=== PATIENT | male | born 1955 | race African-American/Black ===

== ENCOUNTER 2019-02-04 17:11 | Inpatient (IN) | payer BC ==
[2019-02-04 18:18] LABS: Hematocrit 37 % (36-46); Hemoglobin 11.9 g/dL (14.0-18.0); Mean Corpuscular HGB Conc 33 g/dL (31-36); Mean Corpuscular Hemoglobin 29 pg (27-31); Mean Corpuscular Volume 90 fL (80-94); Mean Platelet Volume 7.3 fL (7.4-10.4); Platelet Count 615 10^3/uL (150-450); Red Blood Count 4.07 10^6 /uL (4.18-5.48); Red Cell Distribution Width 14 % (10.5-15); White Blood Count 20.4 10^3/uL (3.5-10.8)
[2019-02-04 18:35] LABS: ALT 30 U/L (7-52); AST 48 U/L (13-39); Albumin 3.8 g/dL (3.2-5.2); Albumin/Globulin Ratio 0.7 (1-3); Alkaline Phosphatase 121 U/L (34-104); Anion Gap 8 mmol/L (2-11); BUN/Creatinine Ratio 10.7 (8-20); Blood Urea Nitrogen 13 mg/dL (6-24); C Reactive Protein 180.94 mg/L (<8.01); CO2 Carbon Dioxide 25 mmol/L (22-32); Calcium 9.7 mg/dL (8.6-10.3); Chloride 98 mmol/L (101-111); EGFR African American 72.4 (>60); EGFR Non-African American 59.8 (>60); Globulin 5.4 g/dL (2-4); Glucose 109 mg/dL (70-100); Potassium 4.9 mmol/L (3.5-5.0); Sodium 131 mmol/L (135-145); Total Protein 9.2 g/dL (6.4-8.9)
[2019-02-04] MEDS ORDERED: NS 0.9% 1000 ML** 1,000 ML IV ONE (18:47)
[2019-02-04 19:03] LABS: ABS Basophils 0.1 10^3/ul (0-0.2); ABS Eosinophils 0.1 10^3/ul (0-0.6); ABS Lymphocytes 1.9 10^3/ul (1.0-4.8); ABS Monocytes 2.3 10^3/ul (0-0.8); ABS Neutrophils 16.1 10^3/ul (1.5-7.7); ABS Nucleated RBC 0 10^3/ul; Eosinophil % 0.6 %; Lymphocyte % 9.3 %; Nucleated Red Blood Cells % 0
--- NOTE | 2019-02-04 19:03 | ED ---
Neck Pain - HPI Summary HPI Summary: Patient complains of pain and swelling to left side neck starting Friday which is pending and progressively worse. Patient was seen at urgent care on Friday , and took 3 days of twice a day doses. Patient then stopped before. Antibiotics were making the neck mass worse. Patient eating and drinking normally, denies SOB, dysphagia, trauma, fever, FISHER, neck stiffness, cough, sore throat, CP, SOB, N/V/D, abdominal pain, change in urine, change in BM. Medical history is hep C. - History of Current Complaint Chief Complaint: EDNeckComplaint Stated Complaint: NECK SWELLING PER PT Time Seen by Provider: 02/04/19 17:39 Hx Obtained From: Patient Onset/Duration Of Injury/Symptoms: Days Mechanism Of Injury: No Known Trauma Timing: Lasting Days Onset/Duration: Gradual Onset Severity Initially: Mild Severity Currently: Severe Pain Intensity: 9 Pain Scale Used: 0-10 Numeric Location: Discrete At: Character: Aching Aggravating Factors: Movement Alleviating Factors: Nothing Associated Signs & Symptoms: Positive: Swelling - Allergies/Home Medications Allergies/Adverse Reactions: Allergies Allergy/AdvReac Type Severity Reaction Status Date / Time FRESH PINEAPPLE Allergy Swelling Uncoded 07/01/17 13:41 Of Face,Lips,& Throat Home Medications: Home Medications Amoxicillin/Clavulanate TAB* [Augmentin TAB 875*] 1 tab PO BID 02/04/19 [ History Confirmed 02/04/19] Aspirin 81 mg CHEW TAB* [Aspirin Low Dose TAB*] 81 mg PO DAILY 02/04/19 [ History Confirmed 02/04/19] PMH/Surg Hx/FS Hx/Imm Hx Endocrine/Hematology History: Denies: Hx Diabetes Cardiovascular History: Denies: Hx Congestive Heart Failure, Hx Hypertension History: Denies: Hx Renal Disease Sensory History: Reports: Hx Contacts or Glasses - READING Denies: Hx Hearing Aid Opthamlomology History: Reports: Hx Contacts or Glasses - READING Neurological History: Denies: Hx Dementia Psychiatric History: Reports: Hx Substance Abuse - ETOH - Surgical History Surgery Procedure, Year, and Place: right eye surgery - [facility]. neck surgery -[facility] Hx Anesthesia Reactions: No Infectious Disease History: No Infectious Disease History: Denies: Traveled Outside the [place] in Last 30 Days - Family History Known Family History: Positive: Hypertension - Social History Alcohol Use: Daily Alcohol Amount: APPROX 6 BEERS DAILY Substance Use Type: Reports: None Hx Tobacco Use: Yes Smoking Status (MU): Light Every Day Tobacco Smoker Amount Used/How Often: 1 PPD SINCE AGE 15-16 Review of Systems Constitutional: Negative Eyes: Negative ENT: Negative Cardiovascular: Negative Respiratory: Negative Gastrointestinal: Negative Genitourinary: Negative Musculoskeletal: Other Skin: Negative Neurological: Negative Psychological: Normal All Other Systems Reviewed And Are Negative: Yes Physical Exam - Summary Physical Exam Summary: Large mass along left side neck inferior to left ear. No evidence of mastoiditis. Hearing intact. Normal range of motion of neck with pain. Some tenderness to palpation of neck mass. No apical abscess, purulent drainage. Erythema difficult to determine given patient skin color. Triage Information Reviewed: Yes Vital Signs On Initial Exam: Initial Vitals Temp Pulse Resp BP Pulse Ox 99.2 F 95 16 122/91 99 02/04/19 17:26 02/04/19 17:26 02/04/19 17:26 02/04/19 17:26 02/04/19 17:26 Vital Signs Reviewed: Yes Appearance: Positive: Well-Appearing Skin: Positive: Warm Head/Face: Positive: Normal Head/Face Inspection Eyes: Positive: Normal ENT: Positive: Normal ENT inspection Neck: Positive: Supple Respiratory/Lung Sounds: Positive: Clear to Auscultation Cardiovascular: Positive: Normal Abdomen Description: Positive: Nontender Musculoskeletal: Positive: Normal Neurological: Positive: Normal Psychiatric: Positive: Normal AVPU Assessment: Alert - Duncan Coma Scale Best Eye Response: 4 - Spontaneous Best Motor Response: 6 - Obeys Commands Best Verbal Response: 5 - Oriented Coma Scale Total: 15 Diagnostics - Vital Signs Vital Signs Temp Pulse Resp BP Pulse Ox 02/04/19 18:00 90 99 02/04/19 17:43 85 137/90 97 02/04/19 17:42 82 97 02/04/19 17:26 99.2 F 95 16 122/91 99 - Laboratory Lab Results: Lab Results 02/04/19 02/04/19 02/04/19 Range/Units 18:05 18:05 18:05 WBC 20.4 H (3.5-10.8) 10^3/uL RBC 4.07 L (4.18-5.48) 10^6 /uL Hgb 11.9 L (14.0-18.0) g/dL Hct 37 (36-46) % MCV 90 (80-94) fL MCH 29 (27-31) pg MCHC 33 (31-36) g/dL RDW 14 (10.5-15) % Plt Count 615 H (150-450) 10^3/uL MPV 7.3 L (7.4-10.4) fL Neut % (Auto) Pending Lymph % (Auto) Pending [place] % (Auto) Pending Eos % (Auto) Pending Baso % (Auto) Pending Absolute Neuts (auto) Pending Absolute Lymphs (auto) Pending Absolute Monos (auto) Pending Absolute Eos (auto) Pending Absolute Basos (auto) Pending Absolute Nucleated RBC Pending Nucleated RBC % Pending Sodium 131 L (135-145) mmol/L Potassium 4.9 (3.5-5.0) mmol/L Chloride 98 L (101-111) mmol/L Carbon Dioxide 25 (22-32) mmol/L Anion Gap 8 (2-11) mmol/L BUN 13 (6-24) mg/dL Creatinine 1.22 H (0.67-1.17) mg/dL Est GFR ( Amer) 72.4 (>60) Est GFR (Non-Af Amer) 59.8 (>60) BUN/Creatinine Ratio 10.7 (8-20) Glucose 109 H (70-100) mg/dL Lactic Acid 1.2 (0.5-2.0) mmol/L Calcium 9.7 (8.6-10.3) mg/dL Total Bilirubin 0.50 (0.2-1.0) mg/dL AST 48 H (13-39) U/L ALT 30 (7-52) U/L Alkaline Phosphatase 121 H (34-104) U/L C-Reactive Protein 180.94 H (<8.01) mg/L Total Protein 9.2 H (6.4-8.9) g/dL Albumin 3.8 (3.2-5.2) g/dL Globulin 5.4 H (2-4) g/dL Albumin/Globulin Ratio 0.7 L (1-3) Result Diagrams: 02/04/19 18:05 02/04/19 18:05 Lab Statement: Any lab studies that have been ordered have been reviewed, and results considered in the medical decision making process. Neck Course/Dx - Course Course Of Treatment: Patient complains of pain and swelling to left side neck starting Friday which is pending and progressively worse. Patient was seen at urgent care on Friday, and took 3 days of twice a day doses. Patient then stopped before. Antibiotics were making the neck mass worse. Patient eating and drinking normally, denies SOB, dysphagia, trauma, fever, FISHER, neck stiffness , cough, sore throat, CP, SOB, N/V/D, abdominal pain, change in urine, change in BM. Medical history is hep C. Physical exam:Large mass along left side neck inferior to left ear. No evidence of mastoiditis. Hearing intact. Normal range of motion of neck with pain. Some tenderness to palpation of neck mass. No apical abscess, purulent drainage. Erythema difficult to determine given patient skin color. Vital signs within normal limits. WBC 20.4. Lactic normal. CRP 181. Creatinine 1.22. Labs otherwise unremarkable. Left posterior cervicalabscess versus mass with associated adjacent mass effect compressing and including left internal jugular vein. SOB finding of mild emphysema. Mass was also evaluated by attending Dr. Montoya who believes mass to be abscess. Discussed patient and CT results with ENT Dr. Lopez who recommended patient be admitted for IV antibiotics and he will consult tomorrow. Patient admitted to hospitalist Dr. Marquez. Patient started on vancomycin and Zosyn here in the ED. - Diagnoses Provider Diagnoses: Neck abscess Discharge - Sign-Out/Discharge Documenting (check all that apply): Patient Departure Patient Received Moderate/Deep Sedation with Procedure: No - Discharge Plan Condition: Stable Disposition: HOME Referrals: No Primary Care Phys,NOPCP [Primary Care Provider] - - Billing Disposition and Condition Condition: STABLE Disposition: Home
[2019-02-04] MEDS ORDERED: Iohexol 300* (CONTRAST) 10 ML SDV IV ONE (19:14)
[2019-02-04] MEDS ORDERED: Morphine 10 MG/ML VIAL (1 ml) IV ONE (21:30)
[2019-02-04] MEDS ORDERED: Piperacillin/Tazobac ADVAN(*) 3.375 GM in NS 0.9% 100 ML* 100 ML IVPB ONE (21:30)
[2019-02-04] MEDS ORDERED: Vancomycin(*) 1,000 MG in NS 0.9% 250 ML* 250 ML IVPB ONE (21:30)
[2019-02-05] MEDS ORDERED: Senna TAB PO PRN (00:16)
[2019-02-05] MEDS ORDERED: Docusate CAP* 100 MG PO PRN (00:16)
[2019-02-05] MEDS ORDERED: Ondansetron INJ* 2 MG/ML VIAL IV PRN (00:16)
[2019-02-05] MEDS ORDERED: Al Hydrox/Mg Hydrox/Simet LIQ* 30 ML UDC PO PRN (00:16)
[2019-02-05] MEDS ORDERED: Gabapentin CAP(*) 100 MG PO PRN (00:23)
[2019-02-05] MEDS ORDERED: Nicotine Inhaler* 10 MG AMP INH PRN (00:23)
[2019-02-05 00:35] LABS: Alcohol < 10 mg/dL (<10)
[2019-02-05] MEDS ORDERED: LORazepam INJ* 2 MG/ML 1 ML VIAL IV PUSH SCH (01:00)
[2019-02-05] MEDS ORDERED: Vancomycin(*) 0 MG in NS 0.9% 250 ML* 250 ML IVPB SCH (01:00)
[2019-02-05] MEDS ORDERED: Vancomycin per Pharmacy* NOTE FOLLOW UP SCH (01:00)
[2019-02-05] MEDS ORDERED: Mouth Piece, Nicotine* 1 EACH CARTRIDGE INH ONE (02:00)
[2019-02-05] MEDS: Lactated Ringers 1000 ML Bag* 1,000 ML IV SCH ×2 (02:44→17:55)
[2019-02-05] MEDS: Morphine INJ* 2 MG/ML 1 ML SYRINGE (TWO MG - NEW SYRINGE VERSION) IV PRN ×4 (02:44→19:19)
[2019-02-05] MEDS: Nicotine PATCH 7 MG/24 HR* PATCH TRANSDERM SCH ×2 (02:47→13:53)
--- NOTE | 2019-02-05 03:24 | HP ---
HISTORY AND PHYSICAL: DATE OF ADMISSION: 02/05/19 TIME OF EVALUATION: 0000. CHIEF COMPLAINT: Left-sided neck mass. HISTORY OF PRESENT ILLNESS: This is a 63-year-old male with past medical history of tobacco and alcohol use, who presents to the emergency room with worsening left- sided neck mass. The patient states he first noticed the mass on Friday. Initially it was not painful, just fullness. The following day, on Friday, he left home, he left to work early, went to [facility] and they prescribed him Augmentin. He continued to have pain and swelling despite taking a total of 6 doses of Augmentin and came here to the emergency room for further evaluation. The patient denies any fevers, no chills. No nausea, vomiting, or abdominal pain. No shortness of breath. No chest pain. He states he does not have any difficulty swallowing. No lightheadedness, no dizziness. He states he has had some sinus congestion for the past week. He also has poor dentition where he is told he needs to have 2 upper teeth pulled on each side of his mouth. Otherwise, review of systems is negative. In the emergency room, the patient had labs and imaging when he was found to have concerning findings for a neck abscess. Dr. Lopez was contacted, recommended admission for antibiotics. PAST MEDICAL HISTORY: 1. History of tobacco use. 2. History of alcohol use. MEDICATION: Aspirin 81 mg p.o. daily. ALLERGIES: Pineapple. FAMILY HISTORY: Reviewed and noncontributory. SOCIAL HISTORY: The patient lives with his son, his daughter Marilyn. He works as a television camera operator. He also lives with his partner. His daughter Marilyn is his healthcare proxy. He states he has significantly cut down over the past 50 years of smoking, now only 3 to 4 cigarettes per day. He does drink a 6-pack of beer each night. No illicit drug use. REVIEW OF SYSTEMS: A 14-point review of systems as mentioned in the HPI, otherwise negative. PHYSICAL EXAMINATION GENERAL: In no acute distress, resting comfortably. Daughter is at bedside. VITAL SIGNS: Temp 99.2, pulse rate 83, respiratory rate 18, oxygen saturation is 98% on room air, and blood pressure 138/90. HEENT: Head: Normocephalic. Pupils equal and reactive. Oropharynx: Mucous membranes moist. No erythema in the posterior oropharynx. No shift. No uvular deviation. NECK: Supple. He has significant fullness and firmness on the left side of his neck surrounding his left-sided sternocleidomastoid. No nuchal rigidity. RESPIRATORY: Clear to auscultation. No wheezes, rhonchi, or rales. CARDIAC: Regular rate and rhythm. Soft systolic murmur heard throughout. ABDOMEN: Soft, nontender, nondistended. EXTREMITIES: No clubbing, cyanosis, or edema. +1 DPs. NEUROLOGIC: Alert and oriented x3. No gross focal neurologic deficits. DIAGNOSTIC STUDIES/LAB DATA: White count is 20.4, hemoglobin 11.9, hematocrit 37, platelets 615. Sodium 131, potassium 4.9, chloride 98, bicarb 25, BUN 13, creatinine 1.22, glucose 109. AST is 48, ALT is 30, and CRP is 180. Radiographic Data: Neck CT shows left posterior cervical space abscess versus mass with associated adjacent mass effect on pressing and including the left internal jugular vein, mild emphysema. ASSESSMENT: This is a 63-year-old male with a past medical history of tobacco and alcohol use, who presents to the emergency room with worsening left-sided neck pain despite oral antibiotics. 1. Neck mass. Assessment: Most consistent with likely neck abscess in the setting of poor dentition and sinus congestion. The patient was initially started on vancomycin and Zosyn. We will continue on vancomycin and switch him over to ceftriaxone and Flagyl. Recommended followup with ENT in the morning. We will keep him n.p.o., on IV fluids for now, pain control and bowel regimen. 2. Alcohol use. The patient with significant alcohol history. We will check alcohol and drug levels and place him on the [place] protocol. 3. Tobacco use. Place him on nicotine patch and inhaler. 4. FEN: NPO, IV fluids. 5. DVT prophylaxis: The patient scores moderate risk. Placed on heparin subcu t.i.d. 6. Code status: Full code. PATIENT TIME: Greater than 40 minutes was spent doing the history and physical , more than half the time spent in direct patient contact. [id number]/[facility] #: [id number] MTDD
[2019-02-05] MEDS: cefTRIAXone(*) 1 GM in NS 0.9% 50 ML* 50 ML IVPB SCH (05:19)
[2019-02-05] MEDS: oxyCODONE/Acetamin 5/325 MG* TAB PO PRN ×2 (05:29→13:52)
[2019-02-05] MEDS: metroNIDAZOLE IV 500 MG/100ML* 500 MG/100 ML BAG IVPB SCH ×3 (06:52→21:22)
[2019-02-05] MEDS: Vancomycin(*) 750 MG in NS 0.9% 250 ML* 250 ML IVPB SCH ×2 (11:44→22:39)
[2019-02-05] MEDS: Heparin VIAL(*) 5000 UNITS/ML VIAL (FIVE THOUSAND) SUBCUT SCH ×2 (13:43→20:52)
--- NOTE | 2019-02-05 13:43 | PN ---
Subjective Date of Service: 02/05/19 Interval History: Mr. Temple is feeling a little better today. He reports pain has decreased from 9/10 to 8/10 and that is acceptable for him. He finds that slight pressure to the mass decreases the pain level while moving in bed. He is hungry. Denies SOB, CP, N/V. No concerns from nursing. Family History: Unchanged from Admission Social History: Unchanged from Admission Past Medical History: Unchanged from Admission Objective Active Medications: Acetaminophen (Tylenol Tab*) 650 mg PO Q4H PRN FEVER/PAIN Al Hydrox/Mg Hydrox/Simethicone (Maalox Plus*) 30 ml PO Q6H PRN INDIGESTION Docusate Sodium (Colace Cap*) 100 mg PO BID PRN CONSTIPATION Folic Acid (Folvite Tab*) 1 mg PO DAILY [facility] Gabapentin (Neurontin Cap(*)) 200 mg PO BEDTIME PRN AGITATION Heparin Sodium (Porcine) (Heparin Vial(*)) 5,000 units SUBCUT Q8HR [facility] Lactated Ringer's (Lactated Ringers 1000 Ml Bag*) 1,000 mls @ 125 mls/hr IV PER RATE [facility] Metronidazole/Sodium Chloride (Flagyl 500 Mg Ivpb*) 500 mg in 100 mls @ 100 mls /hr IVPB Q8H [facility] Ceftriaxone Sodium 1 gm/ (Sodium Chloride) 50 mls @ 200 mls/hr IVPB Q24H [facility] Vancomycin HCl 750 mg/ Sodium (Chloride) 250 mls @ 166.667 mls/hr IVPB Q12H [facility] Lorazepam (Ativan Inj*) 0 - 3 mg IV PUSH .PER [facility] PROTOCOL [facility]; Protocol Morphine Sulfate (Morphine Inj (Syringe))*) 2 mg IV Q4H PRN PAIN - MILD Multivitamins/Minerals (Theragran/Minerals Tab*) 1 tab PO DAILY [facility] Nicotine (Nicotine Inhaler*) 10 mg INH Q2H PRN CRAVING Nicotine (Nicotine Patch 7 Mg/24 Hr*) 1 patch TRANSDERM DAILY [facility] Ondansetron HCl (Zofran Inj*) 4 mg IV Q4H PRN NAUSEA/VOMITING Oxycodone/Acetaminophen (Percocet 5/325 Tab*) 1 tab PO Q4H PRN Pain Senna (Senokot Tab*) 1 tab PO BID PRN CONSTIPATION Thiamine HCl (Vitamin B-1 Tab*) 100 mg PO DAILY [facility] Vital Signs - 8 hr 02/05/19 02/05/19 02/05/19 07:27 07:43 08:00 Temperature 97.4 F Pulse Rate 80 Respiratory 18 16 18 Rate Blood Pressure 133/67 (mmHg) O2 Sat by Pulse 100 Oximetry 02/05/19 02/05/19 02/05/19 08:24 09:15 09:28 Temperature 98.6 F Pulse Rate 78 Respiratory 16 17 18 Rate Blood Pressure 105/78 (mmHg) O2 Sat by Pulse 99 Oximetry Oxygen Devices in Use Now: None Appearance: Middle-aged male sitting in bed in NAD Eyes: No Scleral Icterus Ears/Nose/Mouth/Throat: Mucous Membranes Moist Neck: NL Appearance and Movements; NL JVP, Trachea Midline, - - Hard mass to left neck Respiratory: Symmetrical Chest Expansion and Respiratory Effort, Clear to Auscultation Cardiovascular: NL Sounds; No Murmurs; No JVD, RRR Abdominal: NL Sounds; No Tenderness; No Distention Extremities: No Edema Neurological: Alert and Oriented x 3 Lines/Tubes/Other Access: Clean, Dry and Intact Peripheral IV Result Diagrams: 02/04/19 18:05 02/04/19 18:05 Assess/Plan/Problems-Billing Assessment: Mr. Temple is a 63 yo M with PMH of alcohol abuse who presented to the ED with c/o a left-sided neck mass, presumably an abscess, who failed outpatient antibiotics and was admitted for IV antibiotics. - Patient Problems (1) Neck abscess Code(s): L02.11 - CUTANEOUS ABSCESS OF NECK Comment: - CT shows necrotic lesion vs fluid collection in the left posterior cervical space measuring 3.3 x 2.2 x 4.7cm with stranding in the carotids and compressive occlusion of the left internal jugular vein - Likely secondary to poor dentition; failed outpatient therapy with Augmentin - Appreciate ENT consult; currently NPO for possible drainage later today - Continue vanco, ceftriaxone, Flagyl (2) Sepsis Comment: - Met criteria on admission with tachycardia and leukocytosis; source is left neck abscess - Blood cultures pending - Plan as above (3) MILAN (acute kidney injury) Code(s): N17.9 - ACUTE KIDNEY FAILURE, UNSPECIFIED Comment: - Creatinine 1.22 on admission - Continue IVF and will check BMP in the AM (4) Alcohol dependence Code(s): F10.20 - ALCOHOL DEPENDENCE, UNCOMPLICATED Comment: - Reportedly drinks 6 beers a night - Social work consult - Continue WAM and lorazepam per protocol (5) DVT prophylaxis Comment: - Heparin SQ (6) Full code status Code(s): Z78.9 - OTHER SPECIFIED HEALTH STATUS Comment: Status and Disposition: Inpatient for IV antibiotics and likely drainage of abscess. Anticipate d/c home when medically stable, timeframe unknown. Attending: Kalyn Flores
[2019-02-05] MEDS: Multivitamins/Minerals TAB PO SCH (13:52)
[2019-02-05] MEDS: Thiamine TAB* 100 MG TAB PO SCH (13:53)
[2019-02-05] MEDS: Folic Acid TAB* 1 MG PO SCH (13:53)
[2019-02-05] MEDS: Acetaminophen TAB* 325 MG PO PRN (19:19)
[2019-02-05] MEDS ORDERED: Nicotine Patch Removal NOTE PATCH OFF SCH (21:00)
[2019-02-05] MEDS: Nicotine Patch Removal NOTE FOLLOW UP SCH (21:22)
[2019-02-06] MEDS: Acetaminophen TAB* 325 MG PO PRN ×2 (00:10→06:08)
[2019-02-06] MEDS: Lactated Ringers 1000 ML Bag* 1,000 ML IV SCH (02:06)
[2019-02-06] MEDS: Heparin VIAL(*) 5000 UNITS/ML VIAL (FIVE THOUSAND) SUBCUT SCH ×3 (04:59→21:59)
[2019-02-06] MEDS: cefTRIAXone(*) 1 GM in NS 0.9% 50 ML* 50 ML IVPB SCH (05:00)
[2019-02-06] MEDS: metroNIDAZOLE IV 500 MG/100ML* 500 MG/100 ML BAG IVPB SCH ×3 (05:24→22:18)
[2019-02-06] MEDS: Morphine INJ* 2 MG/ML 1 ML SYRINGE (TWO MG - NEW SYRINGE VERSION) IV PRN (06:09)
[2019-02-06 06:15] LABS: Hematocrit 29 % (36-46); Hemoglobin 9.7 g/dL (14.0-18.0); Mean Corpuscular HGB Conc 33 g/dL (31-36); Mean Corpuscular Hemoglobin 30 pg (27-31); Mean Corpuscular Volume 89 fL (80-94); Mean Platelet Volume 7.1 fL (7.4-10.4); Platelet Count 462 10^3/uL (150-450); Red Blood Count 3.24 10^6 /uL (4.18-5.48); Red Cell Distribution Width 13 % (10.5-15); White Blood Count 11.4 10^3/uL (3.5-10.8)
[2019-02-06 06:21] LABS: ABS Basophils 0.1 10^3/ul (0-0.2); ABS Eosinophils 0.2 10^3/ul (0-0.6); ABS Lymphocytes 1.2 10^3/ul (1.0-4.8); ABS Monocytes 1.7 10^3/ul (0-0.8); ABS Neutrophils 8.1 10^3/ul (1.5-7.7); ABS Nucleated RBC 0 10^3/ul; Lymphocyte % 10.7 %; Nucleated Red Blood Cells % 0
[2019-02-06 06:28] LABS: BUN/Creatinine Ratio 10.6 (8-20); Calcium 8.6 mg/dL (8.6-10.3); EGFR African American 109.8 (>60); EGFR Non-African American 90.7 (>60); Magnesium 2.1 mg/dL (1.9-2.7); Potassium 4.2 mmol/L (3.5-5.0)
[2019-02-06] MEDS: Nicotine PATCH 7 MG/24 HR* PATCH TRANSDERM SCH (08:05)
[2019-02-06] MEDS: Multivitamins/Minerals TAB PO SCH (08:05)
[2019-02-06] MEDS: Folic Acid TAB* 1 MG PO SCH (08:05)
[2019-02-06] MEDS: Thiamine TAB* 100 MG TAB PO SCH (08:05)
[2019-02-06] MEDS ORDERED: Lidocain 1% EPI 1:100,000 * 30 ML MDV ONE (09:37)
--- NOTE | 2019-02-06 09:46 | PN ---
Subjective Date of Service: 02/06/19 Interval History: Mr. Temple reports that he is having pain in his neck but he is generally doing well. He denies any difficulty swallowing or breathing. He further denies chest pain or SOB. Family History: Unchanged from Admission Social History: Unchanged from Admission Past Medical History: Unchanged from Admission Objective Active Medications: Acetaminophen (Tylenol Tab*) 650 mg PO Q4H PRN Al Hydrox/Mg Hydrox/Simethicone (Maalox Plus*) 30 ml PO Q6H PRN Docusate Sodium (Colace Cap*) 100 mg PO BID PRN Folic Acid (Folvite Tab*) 1 mg PO DAILY [facility] Gabapentin (Neurontin Cap(*)) 200 mg PO BEDTIME PRN Heparin Sodium (Porcine) (Heparin Vial(*)) 5,000 units SUBCUT Q8HR [facility] Lactated Ringer's (Lactated Ringers 1000 Ml Bag*) 1,000 mls @ 125 mls/hr IV PER RATE [facility] Metronidazole/Sodium Chloride (Flagyl 500 Mg Ivpb*) 500 mg in 100 mls @ 100 mls /hr IVPB Q8H [facility] Ceftriaxone Sodium 1 gm/ (Sodium Chloride) 50 mls @ 200 mls/hr IVPB Q24H [facility] Vancomycin HCl 750 mg/ Sodium (Chloride) 250 mls @ 166.667 mls/hr IVPB Q12H [facility] Lorazepam (Ativan Inj*) 0 - 3 mg IV PUSH .PER [facility] PROTOCOL [facility]; Protocol Morphine Sulfate (Morphine Inj (Syringe))*) 2 mg IV Q4H PRN Multivitamins/Minerals (Theragran/Minerals Tab*) 1 tab PO DAILY [facility] Nicotine (Nicotine Inhaler*) 10 mg INH Q2H PRN Nicotine (Nicotine Patch 7 Mg/24 Hr*) 1 patch TRANSDERM DAILY [facility] Ondansetron HCl (Zofran Inj*) 4 mg IV Q4H PRN Oxycodone/Acetaminophen (Percocet 5/325 Tab*) 1 tab PO Q4H PRN Pharmacy Consult (Vancomycin Per Pharmacy*) 1 note FOLLOW UP .VANC PER PHARMACY [facility] Pharmacy Profile Note (Nicotine Patch Removal Note*) 1 note FOLLOW UP 2100 [facility] Pharmacy Profile Note (Vancomycin Trough Check) 1 note FOLLOW UP 1030 [facility] Senna (Senokot Tab*) 1 tab PO BID PRN Thiamine HCl (Vitamin B-1 Tab*) 100 mg PO DAILY [facility] Vital Signs: Temp Pulse Resp BP Pulse Ox 97.4 F 78 20 111/68 98 02/06/19 08:07 02/06/19 08:07 02/06/19 08:07 02/06/19 08:07 02/06/19 08:07 Oxygen Devices in Use Now: None Appearance: Male sitting up in bed in NAD Eyes: No Scleral Icterus Ears/Nose/Mouth/Throat: Mucous Membranes Moist Neck: Trachea Midline Respiratory: Symmetrical Chest Expansion and Respiratory Effort, Clear to Auscultation Cardiovascular: NL Sounds; No Murmurs; No JVD, No Edema Abdominal: NL Sounds; No Tenderness; No Distention Extremities: No Edema Skin: - - Dressing to L posterior neck CDI Neurological: Alert and Oriented x 3, NL Muscle Strength and Tone Nutrition: Taking PO's Result Diagrams: 02/06/19 05:54 02/06/19 05:54 Additional Lab and Data: . Microbiology and Other Data: . Assess/Plan/Problems-Billing Assessment: Mr. Temple is a 63 yo M with PMH of alcohol abuse who presented to the ED with c/o a left-sided neck mass, presumably an abscess, who failed outpatient antibiotics and was admitted for IV antibiotics now to undergo incision and drainage with Dr. Lopez. - Patient Problems (1) Neck abscess Comment: - CT shows necrotic lesion vs fluid collection in the left posterior cervical space measuring 3.3 x 2.2 x 4.7cm with stranding in the carotids and compressive occlusion of the left internal jugular vein - Likely secondary to poor dentition; failed outpatient therapy with Augmentin - Appreciate ENT consult; I&D performed today, awaiting cultures - Continue vanco, ceftriaxone, Flagyl (2) Sepsis Comment: - Resolved - Met criteria on admission with tachycardia and leukocytosis; source is left neck abscess - Blood cultures pending - Plan as above (3) MILAN (acute kidney injury) SNOMED Code(s): 76860706 Comment: - Resolved with IVF - Stop IVF. (4) Alcohol dependence Comment: - Reportedly drinks 6 beers a night - Social work consult - No evidence of withdrawal, [facility] protocol d/c'd (5) DVT prophylaxis Comment: - Heparin SQ (6) Full code status Comment: Status and Disposition: Inpatient for IV antibiotics and likely drainage of abscess. Anticipate d/c home when medically stable, timeframe unknown.
[2019-02-06] MEDS ORDERED: Midazolam* 1 MG/ML 2 ML VIAL (2 MG) ONE (09:51)
[2019-02-06] MEDS ORDERED: fentaNYL* 50 MCG/ML 2 ML VIAL (100 MCG VIAL) ONE (09:51)
[2019-02-06] MEDS ORDERED: Famotidine IV* 10 MG/ML 2 ML (20 mg) ONE (10:00)
[2019-02-06] MEDS ORDERED: Lidocaine 2% PF * 5 ML VIAL ONE (10:05)
[2019-02-06] MEDS ORDERED: Cisatracurium* 2 MG/ML MDV 5 ML ONE (10:06)
[2019-02-06] MEDS ORDERED: Propofol* 10 MG/ML 20 ML BTL ONE (10:06)
[2019-02-06] MEDS ORDERED: Dexamethasone IV* 4 MG/ML 1 ML (4 MG) ONE ×2 (10:06)
[2019-02-06] MEDS ORDERED: Succinylcholine* 20 MG/ML 10 ML VIAL ONE (10:06)
[2019-02-06] MEDS ORDERED: Phenylephrine 40 MCG/ML SYRINGE ONE (10:18)
[2019-02-06] MEDS ORDERED: Naloxone* 0.4 MG/ML 1 ML VIAL IV PRN (10:19)
[2019-02-06] MEDS ORDERED: fentaNYL* 50 MCG/ML 2 ML VIAL (100 MCG VIAL) IV PRN (10:19)
[2019-02-06] MEDS ORDERED: Buffered Lidocaine 1% SYRIN* 1 ML/SYRINGE INTRADERM ONE (10:19)
[2019-02-06] MEDS ORDERED: diPHENhydraMINE IV* 50 MG/ML 1 ml VIAL (BENADRYL) IV PRN (10:19)
[2019-02-06] MEDS ORDERED: PROCHLORPERAZINE INJ 5 MG/ML 2 ML VIAL IV PRN (10:19)
[2019-02-06] MEDS ORDERED: Levalbuterol 0.63MG/3ML NEB* UNIT OF USE INH PRN (10:19)
[2019-02-06] MEDS ORDERED: DiMENhydriNATE IV* 50 MG/ML VIAL IV PUSH PRN (10:19)
[2019-02-06] MEDS ORDERED: Vancomycin Trough Check NOTE FOLLOW UP ONE (10:30)
[2019-02-06] MEDS ORDERED: Levalbuterol 0.63MG/3ML NEB* UNIT OF USE INH ONE (10:46)
[2019-02-06] MEDS ORDERED: Lactated Ringers 1000 ML Bag* 1,000 ML IV SCH (11:00)
--- NOTE | 2019-02-06 12:13 | OP ---
OPERATIVE REPORT: DATE OF OPERATION: 02/06/19 DATE OF : 53 SURGEON: Evgeny Lopez MD. MANAGER PARTY: None. ANESTHESIA: General. PRE-OP DIAGNOSIS: Deep neck space abscess. POST-OP DIAGNOSIS: Deep neck space abscess. OPERATIVE PROCEDURE: Incision and drainage of neck abscess. ESTIMATED BLOOD LOSS: Negligible. FINDINGS: Approximately 15 cc of pus which was cultured. DESCRIPTION OF PROCEDURE: This is a 63-year-old male who was admitted with a painful left neck swell ing. CT scan demonstrated what appeared to be posterior cervical inflammatory process with the begin nings of what appeared to be some central necrosis and organization suggestive of early abscess. The patient was admitted, placed on IV antibiotics. He was followed for approximately 36 hours. There w as some improvement in pain but no significant improvement in his neck swelling, and he continued to run low-grade fevers. The decision was made to bring him to the operating room for incision and drai nage. On 02/06/19, the patient was brought to the operating room, general anesthesia was induced, an d an oral endotracheal tube was placed. The patient's left neck was marked, prepped with Betadine, a nd draped sterilely. A time-out was performed. Approximately 6 cc of 1% lidocaine with 1:100,000 ep inephrine was infiltrated into the intended incision site. A 15 blade was then used to make a 1-inch incision overlying the abscess. A mosquito clamp and then subsequently a Betty clamp were used to m lachelle vertical spreads to enter the abscess cavity from a location posterior to the sternocleidomastoid muscle just inferior to the mastoid tip. The abscess cavity was entered. There was significant bobby unt of purulent debris that flowed out of the abscess cavity. This was cultured and sent for both ae robic and anaerobic cultures. The cavity was then extensively irrigated with sterile saline. A Penr ose drain was placed. It was sutured in position. The edges of the wound were also stitched closed. A dressing was applied. The patient was then extubated and delivered to the PACU in stable conditi on. [id number]/[facility] #: [id number]
[2019-02-06] MEDS: Vancomycin(*) 750 MG in NS 0.9% 250 ML* 250 ML IVPB SCH ×2 (13:39→23:57)
[2019-02-06] MEDS: oxyCODONE/Acetamin 5/325 MG* TAB PO PRN ×2 (13:58→22:16)
[2019-02-07] MEDS: Nicotine Patch Removal NOTE FOLLOW UP SCH (02:27)
[2019-02-07] MEDS: cefTRIAXone(*) 1 GM in NS 0.9% 50 ML* 50 ML IVPB SCH (05:45)
[2019-02-07] MEDS: metroNIDAZOLE IV 500 MG/100ML* 500 MG/100 ML BAG IVPB SCH (06:19)
[2019-02-07] MEDS: Heparin VIAL(*) 5000 UNITS/ML VIAL (FIVE THOUSAND) SUBCUT SCH ×2 (06:23→14:19)
[2019-02-07] MEDS: Thiamine TAB* 100 MG TAB PO SCH (08:07)
[2019-02-07] MEDS: Folic Acid TAB* 1 MG PO SCH (08:07)
[2019-02-07] MEDS: Multivitamins/Minerals TAB PO SCH (08:07)
[2019-02-07] MEDS: Vancomycin(*) 750 MG in NS 0.9% 250 ML* 250 ML IVPB SCH ×2 (08:07→14:16)
[2019-02-07] MEDS: oxyCODONE/Acetamin 5/325 MG* TAB PO PRN (08:12)
[2019-02-07 08:20] VITALS: BP 130/70
[2019-02-07] MEDS: Nicotine PATCH 7 MG/24 HR* PATCH TRANSDERM SCH (08:53)
--- NOTE | 2019-02-07 09:59 | PN ---
Subjective Date of Service: 02/07/19 Interval History: Mr. Temple reports that he is feeling quite well today. He reports that his pain is well controlled on the current regimen. He denies other complaint including chest pain or SOB. Family History: Unchanged from Admission Social History: Unchanged from Admission Past Medical History: Unchanged from Admission Objective Active Medications: Acetaminophen (Tylenol Tab*) 650 mg PO Q4H PRN Al Hydrox/Mg Hydrox/Simethicone (Maalox Plus*) 30 ml PO Q6H PRN Docusate Sodium (Colace Cap*) 100 mg PO BID PRN Folic Acid (Folvite Tab*) 1 mg PO DAILY [facility] Gabapentin (Neurontin Cap(*)) 200 mg PO BEDTIME PRN Heparin Sodium (Porcine) (Heparin Vial(*)) 5,000 units SUBCUT Q8HR [facility] Metronidazole/Sodium Chloride (Flagyl 500 Mg Ivpb*) 500 mg in 100 mls @ 100 mls /hr IVPB Q8H [facility] Ceftriaxone Sodium 1 gm/ (Sodium Chloride) 50 mls @ 200 mls/hr IVPB Q24H [facility] Lactated Ringer's (Lactated Ringers 1000 Ml Bag*) 1,000 mls @ 125 mls/hr IV PER RATE [facility] Vancomycin HCl 750 mg/ Sodium (Chloride) 250 mls @ 166.667 mls/hr IVPB Q8H [facility] Multivitamins/Minerals (Theragran/Minerals Tab*) 1 tab PO DAILY [facility] Nicotine (Nicotine Inhaler*) 10 mg INH Q2H PRN Nicotine (Nicotine Patch 7 Mg/24 Hr*) 1 patch TRANSDERM DAILY [facility] Ondansetron HCl (Zofran Inj*) 4 mg IV Q4H PRN Oxycodone/Acetaminophen (Percocet 5/325 Tab*) 1 tab PO Q4H PRN Oxycodone/Acetaminophen (Percocet 5/325 Tab*) 2 tab PO Q4H PRN Pharmacy Consult (Vancomycin Per Pharmacy*) 1 note FOLLOW UP .VANC PER PHARMACY [facility] Pharmacy Profile Note (Nicotine Patch Removal Note*) 1 note FOLLOW UP 2099 [facility] Pharmacy Profile Note (Vancomycin Trough Check) 1 note FOLLOW UP 0530 ONE Senna (Senokot Tab*) 1 tab PO BID PRN Thiamine HCl (Vitamin B-1 Tab*) 100 mg PO DAILY [facility] Vital Signs: Temp Pulse Resp BP Pulse Ox 96.7 F 82 16 130/70 100 04/07/19 07:34 02/07/19 07:34 02/07/19 08:12 02/07/19 07:34 02/07/19 08:00 Oxygen Devices in Use Now: None Appearance: Male lying in bed in NAD Eyes: No Scleral Icterus Ears/Nose/Mouth/Throat: Mucous Membranes Moist Neck: Trachea Midline Respiratory: Symmetrical Chest Expansion and Respiratory Effort, Clear to Auscultation Cardiovascular: NL Sounds; No Murmurs; No JVD, No Edema Abdominal: NL Sounds; No Tenderness; No Distention Extremities: No Edema Skin: No Rash or Ulcers Neurological: Alert and Oriented x 3, NL Muscle Strength and Tone Nutrition: Taking PO's Result Diagrams: 02/06/19 05:54 02/06/19 05:54 Additional Lab and Data: . Microbiology and Other Data: . Assess/Plan/Problems-Billing Assessment: Mr. Temple is a 63 yo M with PMH of alcohol abuse who presented to the ED with c/o a left-sided neck abscess who failed outpatient antibiotics, now s/p I/D with Dr. Lopez. - Patient Problems (1) Neck abscess Comment: - S/P I/D with John on 02/06/19 - Micro with gram +, Staph negative thus far - CT showed necrotic lesion vs fluid collection in the left posterior cervical space measuring 3.3 x 2.2 x 4.7cm with stranding in the carotids and compressive occlusion of the left internal jugular vein - Likely secondary to poor dentition; failed outpatient therapy with Augmentin - Continue vanco, stop ceftriaxone and flagyl. Adjust today based on culture results. (2) Sepsis Comment: - Resolved - Met criteria on admission with tachycardia and leukocytosis; source is left neck abscess - Blood cultures negative thus far - Plan as above (3) MILAN (acute kidney injury) SNOMED Code(s): 79448320 Comment: - Resolved with IVF - Stop IVF. (4) Alcohol dependence Comment: - Reportedly drinks 6 beers a night - Social work consult - No evidence of withdrawal, [facility] protocol d/c'd (5) DVT prophylaxis Comment: - Heparin SQ (6) Full code status Comment: Status and Disposition: Inpatient. Anticipate discharge to home when medically stable.
--- NOTE | 2019-02-07 16:12 | PN ---
Progress Note - Progress Note Date of Service: 02/07/19 Note: Patient has remained stable. Micro with gram + cocci, not staph, likely strep. Plan for clindamycin po and close follow up with Dr. John Velazquez AM. Dr. Lopez agrees with plan. Patient encouraged to return immediately to ED with fever, swelling, difficulty breathing or swallowing, or other concerning symptom.
--- NOTE | 2019-02-07 22:16 | DS ---
DISCHARGE SUMMARY: DATE OF ADMISSION: 02/05/19 DATE OF DISCHARGE: 02/07/19 ATTENDING PHYSICIAN: Dr. Jass London * (dictation provided by Anya Cross NP ). PRIMARY DIAGNOSIS: Left-sided neck abscess, likely due to poor dentition. SECONDARY DIAGNOSES: 1. History of tobacco abuse. 2. History of alcohol use. MEDICATIONS AT THE TIME OF DISCHARGE: 1. Clindamycin 300 mg p.o. t.i.d. x5 days or until followup with Dr. Lopez. 2. Aspirin 81 mg p.o. daily. HOSPITAL COURSE: Mr. Temple is a 63-year-old male with past medical history of tobacco or alcohol abuse who presents to the hospital on 02/05/19 with concern for a left-sided neck mass. Please see dictated H and P from Cammy Acosta D.O., for complete details. In brief, patient had noticed this on Friday prior to admission. He did not experience pain, but just a fullness. He was evaluated ultimately at [facility] on Friday and was prescribed Augmentin. Despite 6 doses of Augmentin, the patient continued to have worsening swelling. He had no fever, no chills, no shortness of breath or difficulty swallowing. In the emergency room, he had a neck CT, which showed "left posterior cervical space abscess versus mass with associated adjacent mass effect compressing and occluding the left internal jugular vein and mild emphysema." Mr. Temple was admitted to the hospital. He was treated with vancomycin, ceftriaxone, and Flagyl while we awaited blood culture and other results. Patient was seen in consultation by Dr. Lopez and was ultimately taken to the OR for incision and drainage on 02/06/19. Microbiology from nose cultures has grown Gram- positive cocci, which is both staph and MRSA-negative. Mr. Temple has remained stable throughout the hospitalization. He denies any complaint today. His vitals are stable. I have spoken with Dr. Lopez and he stated if the patient remains medically stable, he may be discharged to home today on clindamycin to follow up with him in the office on Friday a.m. for removal of drain that was placed in the OR. In the meantime, the patient is to simply replace his dressing twice daily and he will be provided with Tegaderm and 4x4 gauzes for that purpose. Mr. Temple is medically stable. DISPOSITION: Discharged to home. DIET: Regular. ACTIVITY: As tolerated. FOLLOWUP PLANS: Please follow up with Dr. Lopez. Patient has been instructed to call Dr. Lopez's office in the morning for anticipated appointment on Friday and for removal of drain. TIME SPENT: Approximately 60 minutes were spent on the discharge of this patient, more than half of the time was spent with the patient at the bedside reviewing the events leading up to and during this hospitalization, performing the physical examination, and reviewing my plan of care. ANYA CROSS NP [id number]/CPS #: [id number] TERRY
[2019-02-08] MEDS ORDERED: Vancomycin Trough Check NOTE FOLLOW UP ONE (05:30)
== END 2019-02-07 17:00 | disposition home health service (06) | DRG 720 ==
LOC: ED 17:11 → MED 02-05 00:16
PROVIDERS: ADMIT Pediatrics; ATTEND Student in an Organized Health Care Education/Training Program
PROC: 0J9500Z Drainage of Left Neck Subcutaneous Tissue and Fascia with Drainage Device, Open Approach (ICD-10-PCS; principal; 2019-02-06 10:43)
DX: A41.9 Sepsis, unspecified organism (principal); L02.11 Cutaneous abscess of neck; N17.9 Acute kidney failure, unspecified; I82.C12 Acute embolism and thrombosis of left internal jugular vein; K08.9 Disorder of teeth and supporting structures, unspecified; F17.210 Nicotine dependence, cigarettes, uncomplicated; J43.9 Emphysema, unspecified; F10.20 Alcohol dependence, uncomplicated; R40.2362 Coma scale, best motor response, obeys commands, at arrival to emergency department; R40.2142 Coma scale, eyes open, spontaneous, at arrival to emergency department; R40.2252 Coma scale, best verbal response, oriented, at arrival to emergency department; Y90.9 Presence of alcohol in blood, level not specified; B96.89 Other specified bacterial agents as the cause of diseases classified elsewhere; Z79.82 Long term (current) use of aspirin; Z82.49 Family history of ischemic heart disease and other diseases of the circulatory system; Z91.018 Allergy to other foods
CPT/HCPCS: 36415; 70491; 80048; 80053; 80202; 80320; 83605; 83735; 85025; 86140; 87040; 87070; 87073; 87205; 87640; 87641; 99284; A9270-GY; G0480; J0330; J0696; J1100; J1644; J2250; J2270; J2543; J2704; J3010; J3370; J3490; Q9967